=== PATIENT | female | born 1950 | race Two or more races ===

== ENCOUNTER 2018-03-31 11:19 | Outpatient (CLI) | payer OTHER | END 2018-03-31 11:25 | disposition home or self-care (01) | LOC: MAMO-SONO 11:19 | DX: Z12.31 Encounter for screening mammogram for malignant neoplasm of breast (principal); Z87.898 Personal history of other specified conditions ==

== ENCOUNTER 2018-06-07 11:30 | Outpatient (CLI) | payer OTHER | END 2018-06-07 11:31 | disposition home or self-care (01) | LOC: SONOGRAMA 11:30 | DX: K80.80 Other cholelithiasis without obstruction (principal) ==

== ENCOUNTER 2018-08-08 09:30 | Outpatient (CLI) | payer OTHER | END 2018-08-08 10:05 | disposition home or self-care (01) | LOC: LAB 09:30 | DX: K80.10 Calculus of gallbladder with chronic cholecystitis without obstruction (principal) ==

== ENCOUNTER 2020-06-05 11:46 | Outpatient (CLI) | payer OTHER | END 2020-06-05 11:52 | disposition home or self-care (01) | LOC: MAMO-SONO 11:46 | PROVIDERS: ATTEND Family Medicine | DX: Z12.31 Encounter for screening mammogram for malignant neoplasm of breast (principal); N60.11 Diffuse cystic mastopathy of right breast; N60.12 Diffuse cystic mastopathy of left breast ==

== ENCOUNTER 2021-04-21 08:48 | Outpatient (CLI) | payer OTHER | END 2021-04-21 08:58 | disposition home or self-care (01) | LOC: SONOGRAMA 08:48 | PROVIDERS: ATTEND Family Medicine | DX: K80.80 Other cholelithiasis without obstruction (principal); K70.11 Alcoholic hepatitis with ascites ==

== ENCOUNTER 2022-01-25 10:47 | Outpatient (CLI) | payer OTHER | END 2022-01-25 10:51 | disposition home or self-care (01) | LOC: MAMO-SONO 10:47 | PROVIDERS: ATTEND Family Medicine | DX: N60.11 Diffuse cystic mastopathy of right breast (principal); N60.12 Diffuse cystic mastopathy of left breast ==

== ENCOUNTER 2023-04-26 14:52 | Outpatient (CLI) | payer OTHER | END 2023-04-26 14:57 | disposition home or self-care (01) | LOC: RAD 14:52 | PROVIDERS: ATTEND Family Medicine | DX: J32.0 Chronic maxillary sinusitis (principal) ==

== ENCOUNTER 2025-04-10 14:27 | Outpatient (CLI) | payer OTHER | END 2025-04-10 14:34 | disposition home or self-care (01) | LOC: MAMO-SONO 14:27 | PROVIDERS: ATTEND Family Medicine | DX: N60.11 Diffuse cystic mastopathy of right breast (principal); N60.12 Diffuse cystic mastopathy of left breast; Z12.31 Encounter for screening mammogram for malignant neoplasm of breast ==

== ENCOUNTER 2025-07-02 13:41 | Outpatient (CLI) | payer OTHER | END 2025-07-02 13:46 | disposition home or self-care (01) | LOC: RAD 13:41 | PROVIDERS: ATTEND Chiropractor | DX: M99.03 Segmental and somatic dysfunction of lumbar region (principal); M85.811 Other specified disorders of bone density and structure, right shoulder ==